=== PATIENT | female | born 1985 | race Hispanic/Latino ===

== ENCOUNTER 2018-11-01 11:25 | Emergency (ER) | payer SELFPAY ==
[2018-11-01 13:58] LABS: Bilirubin Small (Negative); Blood, Urine Negative (Negative); Clarity CLOUDY (Clear); Glucose, Urine (Dipstick) Negative (Negative); Leukocyte Small (Negative); Nitrite Negative (Negative); Protein, Urine (Dipstick) 30 mg/dL (Neg-Trace); Specific Gravity, Urine 1.036 (1.002-1.036)
[2018-11-01 13:59] LABS: Pregnancy Test - Urine (BHCG) Negative (Negative); Pregu Control Background? CLEAR/WHITE (CLR/WHITE); Pregu Control Bar Appear? YES (CONTROL BAR); Specific Gravity 1.036 (1.002-1.036)
[2018-11-01 14:01] LABS: Bacteria/HPF 1+ HPF (None Seen); Hyaline Casts/LPF 7-10 HYALINE CAST LPF (0-3 Hyaline); Pathc Cast-AUWi Flag 2.32 (0-2.49); Squamous Epithelial 21-50 HPF (0-3)
[2018-11-01 14:21] LABS: Crystals/HPF None Seen HPF (Negative); RBC/HPF None Seen HPF (0-3)
--- NOTE | 2018-11-01 15:11 | RAD ---
CHEST 2 VIEWS: INDICATION: Cough, congestion, shortness of breath, and fever. COMPARISON: None. FINDINGS: There are patchy airspace opacities within the left lower lobe which may reflect sequelae of developi ng pneumonia. The right lung is clear. Heart size is within normal limits. No acute osseous abnorm ality is evident. IMPRESSION: Patchy linear opacities within the left lower lobe may reflect developing pneumonia. The right lung is clear. Radiographic followup to resolution is recommended. No acute osseous abnormality is evide nt. POS: [facility]
== END 2018-11-01 16:14 | disposition home or self-care (01) ==
LOC: ERS 11:25
DX: J18.1 Lobar pneumonia, unspecified organism (principal)
CPT/HCPCS: 71046; 81003; 81015; 81025

== ENCOUNTER 2019-11-04 12:05 | Emergency (ER) | payer OTHER, SELFPAY ==
[2019-11-04 14:20] LABS: #Basophils 0.1 thou/uL (0.0-0.2); #Eosinphils 0.3 thou/uL (0.0-0.7); #Lymphocytes 2.7 thou/uL (1.20-3.40); #Monocytes 0.3 thou/uL (0.11-0.59); #Neutrophils 5.3 thou/uL (1.40-6.50); %Basophils 0.9 % (0.0-1.0); %Lymphocytes 30.8 % (21.0-51.0); %Monocytes 3.7 % (0.0-10.0); %Neutrophils 60.6 % (42.0-75.0); Hemoglobin 14.6 g/dL (12.0-16.0); Mean Corpuscular HGB CONC 33.1 g/dL (32.0-36.0); Mean Corpuscular Hemoglobin 28.6 pg (27.0-31.0); Mean Corpuscular Volume 86.4 fL (78.0-98.0); Mean Platelet Volume 8.8 fL (7.4-10.4); Platelet Count 249 thou/uL (130-400); RBC Distribution Width 12.6 % (11.5-14.5); White Blood Cell (WBC) Count 8.7 thou/uL (4.8-10.8)
[2019-11-04] MEDS ORDERED: Adacel (T-DAP) 0.5 ML SYRINGE ONE (14:30)
[2019-11-04] MEDS ORDERED: Bacitracin 1 PK ONE (14:38)
[2019-11-04 14:48] LABS: ALT (SGPT) 21 U/L (8-55); AST (SGOT) 17 U/L (5-34); Albumin 3.3 g/dL (3.5-5.0); Alkaline Phosphatase 90 U/L (40-110); Anion Gap 9 mmol/L (10-20); BUN (Urea Nitrogen) 10 mg/dL (7.0-18.7); Bilirubin, Total 0.3 mg/dL (0.2-1.2); Calc. Creatinine Clearance 0 mL/min (70-130); Carbon Dioxide 21 mmol/L (22-29); Chloride 112 mmol/L (98-107); Estimated GFR-MDRD 70; Globulin 2.5 g/dL (2.4-3.5); Glucose 132 mg/dL (70-105); Potassium 3.9 mmol/L (3.5-5.1); Protein, Total 5.8 g/dL (6.0-8.3); Sodium 138 mmol/L (136-145)
--- NOTE | 2019-11-04 15:41 | ULT ---
TRANSVAGINAL PELVIC ULTRASOUND DATE:: 11/04/2019 2:48 PM CLINICAL HISTORY: Dizziness with history of . COMPARISON: None. TECHNIQUE: Grayscale, color Doppler and spectral Doppler images were obtained of the pelvis see a tra nsvaginal approach Uterus: Size: 9.2 x 4.7 x 5.5 cm. Mass: None Cervix: Small nabothian cyst is seen at the level of the cervix. Endometrium: No intrauterine gestation demonstrated. Endometrial Thickness: 8.0 mm Ovaries: Size: right measures 3.0 x 2.2 x 2.5 cm; left ovary not visualized Mass: None. Flow: Normal flow to the right ovary Cul-de-sac: No free fluid IMPRESSION: Findings consistent with of undetermined location. Recommend continued clinical [facility]. No intrauterine gestation identified. Findings may reflect early , missed or ectopic . Nonvisualization of the left ovary.
== END 2019-11-04 16:53 | disposition home or self-care (01) ==
LOC: ERS 12:05
DX: O9A.211 Injury, poisoning and certain other consequences of external causes complicating pregnancy, first trimester (principal); S61.451A Open bite of right hand, initial encounter; O99.89 Other specified diseases and conditions complicating pregnancy, childbirth and the puerperium; R55 Syncope and collapse; R00.2 Palpitations; O99.331 Smoking (tobacco) complicating pregnancy, first trimester; F17.210 Nicotine dependence, cigarettes, uncomplicated; Y04.1XXA Assault by human bite, initial encounter
CPT/HCPCS: 36415; 76856; 80053; 84702; 85025; 90471; 90715; 93005; 94760; 96360; 96361

== ENCOUNTER 2020-09-22 10:26 | Emergency (ER) | payer OTHER, SELFPAY ==
[2020-09-22 10:49] LABS: #Eosinphils 0.2 thou/uL (0.0-0.7); #Lymphocytes 2.1 thou/uL (1.20-3.40); #Monocytes 0.4 thou/uL (0.11-0.59); #Neutrophils 6.2 thou/uL (1.40-6.50); %Basophils 0.1 % (0.0-1.0); %Eosinophils 1.9 % (0.0-10.0); %Lymphocytes 23.6 % (21.0-51.0); %Monocytes 4.7 % (0.0-10.0); %Neutrophils 69.7 % (42.0-75.0); Hemoglobin 13.6 g/dL (12.0-16.0); Mean Corpuscular Hemoglobin 27.6 pg (27.0-31.0); Mean Corpuscular Volume 83.4 fL (78.0-98.0); Mean Platelet Volume 8.6 fL (7.4-10.4); Platelet Count 223 thou/uL (130-400); RBC Distribution Width 12.2 % (11.5-14.5); Red Blood Cell (RBC) Count 4.94 mill/uL (4.20-5.40); White Blood Cell (WBC) Count 8.9 thou/uL (4.8-10.8)
[2020-09-22 11:11] LABS: ALT (SGPT) 7 U/L (8-55); AST (SGOT) 9 U/L (5-34); Albumin 3.6 g/dL (3.5-5.0); Alkaline Phosphatase 84 U/L (40-110); Anion Gap 13 mmol/L (10-20); BUN (Urea Nitrogen) 10 mg/dL (7.0-18.7); Bilirubin, Total 0.2 mg/dL (0.2-1.2); Calc. Creatinine Clearance 0 mL/min (70-130); Calcium 8.9 mg/dL (7.8-10.44); Carbon Dioxide 22 mmol/L (22-29); Chloride 105 mmol/L (98-107); Globulin 3.5 g/dL (2.4-3.5); Glucose 116 mg/dL (70-105); Potassium 4.3 mmol/L (3.5-5.1); Protein, Total 7.1 g/dL (6.0-8.3); Sodium 136 mmol/L (136-145)
[2020-09-22 11:17] LABS: Bilirubin Negative (Negative); Blood, Urine Negative (Negative); Clarity Clear (Clear); Glucose, Urine (Dipstick) Normal (Negative); Ketone, Urine Negative (Negative); Leukocyte Negative Leu/uL (Negative); Nitrite Negative (Negative); Protein, Urine (Dipstick) Negative (Neg-Trace); Urobilinogen Normal mg/dL (Less than 2); pH, Urine 6.5 (5.0-9.0)
--- NOTE | 2020-09-22 12:10 | ULT ---
ULTRASOUND PELVIC DOPPLER DUPLEX: DATE: 09/22/2020 HISTORY: 35-year-old female with first trimester vaginal bleeding and pelvic pain TECHNIQUE: Transabdominal transducer used to visualize intrapelvic contents with grayscale, color-flow, and spec tral analysis. Transvaginal ultrasound not performed COMPARISON: None FINDINGS: There is an intrauterine gestational sac at the body and fundus of the uterus. pole crown-rump length: 3.5 cm: 10 W 3-D No heart activity detected. No moderate sized or large subchorionic hematoma. No free fluid in the cul-de-sac. Ovaries not visualized. IMPRESSION: Evidence for missed : First trimester intrauterine demise.
== END 2020-09-22 13:34 | disposition home or self-care (01) ==
LOC: ERS 10:26
DX: O02.1 Missed abortion (principal); Z3A.10 10 weeks gestation of pregnancy
CPT/HCPCS: 36415; 76815; 80053; 81003; 84702; 85025; 86900; 86901

== ENCOUNTER 2021-02-21 16:37 | Emergency (ER) | payer OTHER ==
[~2021-02-21 16:37] MED LIST: Iopamidol-370 76% 500 ML 1 ML ONE
[2021-02-21 17:11] LABS: #Eosinphils 0.1 thou/uL (0.0-0.7); #Lymphocytes 2.4 thou/uL (1.20-3.40); #Monocytes 0.9 thou/uL (0.11-0.59); #Neutrophils 13.9 thou/uL (1.40-6.50); %Basophils 0.1 % (0.0-1.0); %Eosinophils 0.5 % (0.0-10.0); %Lymphocytes 13.7 % (21.0-51.0); %Neutrophils 80.6 % (42.0-75.0); Hemoglobin 12.6 g/dL (12.0-16.0); Mean Corpuscular HGB CONC 33.6 g/dL (32.0-36.0); Mean Corpuscular Hemoglobin 27.4 pg (27.0-31.0); Mean Corpuscular Volume 81.5 fL (78.0-98.0); Mean Platelet Volume 8.4 fL (7.4-10.4); Platelet Count 314 thou/uL (130-400); RBC Distribution Width 13.4 % (11.5-14.5); Red Blood Cell (RBC) Count 4.59 mill/uL (4.20-5.40); White Blood Cell (WBC) Count 17.3 thou/uL (4.8-10.8)
[2021-02-21 17:15] LABS: Bilirubin Negative (Negative); Blood, Urine Negative (Negative); Clarity Turbid (Clear); Glucose, Urine (Dipstick) Normal (Negative); Ketone, Urine Negative (Negative); Leukocyte Negative Leu/uL (Negative); Nitrite Negative (Negative); Protein, Urine (Dipstick) Negative (Neg-Trace); Specific Gravity, Urine 1.016 (1.002-1.036); Urobilinogen Normal mg/dL (Less than 2); pH, Urine 5.5 (5.0-9.0)
[2021-02-21 17:20] LABS: Pregnancy Test - Urine (BHCG) Negative (Negative); Pregu Control Background? CLEAR/WHITE (CLR/WHITE); Pregu Control Bar Appear? YES (CONTROL BAR); Specific Gravity 1.016 (1.002-1.036)
[2021-02-21 17:30] LABS: ALT (SGPT) 16 U/L (8-55); AST (SGOT) 10 U/L (5-34); Albumin 3.6 g/dL (3.5-5.0); Alkaline Phosphatase 82 U/L (40-110); Anion Gap 12 mmol/L (10-20); BUN (Urea Nitrogen) 5 mg/dL (7.0-18.7); Bilirubin, Total 0.7 mg/dL (0.2-1.2); Calc. Creatinine Clearance 0 mL/min (70-130); Calcium 9.1 mg/dL (7.8-10.44); Carbon Dioxide 21 mmol/L (22-29); Chloride 105 mmol/L (98-107); Globulin 3.8 g/dL (2.4-3.5); Glucose 111 mg/dL (70-105); Potassium 3.8 mmol/L (3.5-5.1); Protein, Total 7.4 g/dL (6.0-8.3); Sodium 134 mmol/L (136-145)
[2021-02-21] MEDS ORDERED: Dicyclomine 20 MG TAB ONE (17:31)
[2021-02-21] MEDS ORDERED: cefTRIAXone\\ROCEPHIN 1 GM VIAL ONE (19:49)
[2021-02-21] MEDS ORDERED: Acetaminophen 500 MG TAB ONE (19:57)
[2021-02-21] MEDS ORDERED: Morphine 4 MG/ML VIAL ONE (21:00)
== END 2021-02-21 21:49 | disposition short-term general hospital (02) ==
LOC: ERS 16:37
DX: N73.9 Female pelvic inflammatory disease, unspecified (principal); F17.210 Nicotine dependence, cigarettes, uncomplicated
CPT/HCPCS: 36415; 74177; 80053; 81003; 81025; 83690; 85025; 96365; 96366; 96367; 96375; J0696; J2270; J3490; Q9967